=== PATIENT | female | born 1945 | race Caucasian/White ===

== ENCOUNTER → 2019-10-24 | Outpatient (CLI) | payer MEDICARE, OTHER | LOC: CARD 08:52 | PROVIDERS: ATTEND Physician Assistant | DX: I34.0 Nonrheumatic mitral (valve) insufficiency (principal); I65.29 Occlusion and stenosis of unspecified carotid artery; I10 Essential (primary) hypertension; E78.2 Mixed hyperlipidemia; R55 Syncope and collapse | CPT/HCPCS: 93306 ==

== ENCOUNTER → 2022-01-06 | Outpatient (CLI) | payer MEDICARE, OTHER ==
[~2022-01-06] MED LIST: CATHETER FLUSH 10 ML SYR IVP PRN
[2022-01-06 08:51] VITALS: BP 158/95
--- NOTE | 2022-01-06 13:24 | Cardiology Stress Test Report ---
Stress Test Report Date of Procedure/Referring: Date of Procedure: Jan 06, 2022 PCP Neli Delgadillo MD Admitting Physician Admitting Physician: Attending Physician: Rupa Zuniga Indications: HTN Baseline Heart Rate: 74 Baseline Blood Pressure: Blood Pressure Systolic: 158 Blood Pressure Diastolic: 95 Vital Signs Date Time Temp Pulse Resp B/P (MAP) Pulse Ox O2 Delivery O2 Flow Rate FiO2 01/06/22 08:51 74 158/95 (116) Baseline Vital Signs Vital Signs Date Time Temp Pulse Resp B/P (MAP) Pulse Ox O2 Delivery O2 Flow Rate FiO2 01/06/22 08:51 74 158/95 (116) Baseline EKG: Baseline EKG: NSR Summary: After explaining the procedure and details to the patient, she signed the consent and was brought to the stress nuclear laboratory. Patient exercised on standard [facility] protocol, EKG, heart rate and blood pressure were monitored continuously, resting and stress doses of radio tracer were injected, imaging was acquired and reviewed in the short axis, horizontal long axis and vertical long axis views Patient was able to exercise for a total of 3 minutes on [facility] protocol, METs 4.4 Maximum heart rate 155 Maximum blood pressure 216/102 Stress EKG, Minimal nondiagnostic changes Recovery EKG, Return to baseline TID: 1.07 SSS: 0 SDS: 0 EF: 74 Conclusion: 1. Fair exercise tolerance for a total of 3 minutes on standard [facility] protocol, 4.4 METS achieving over 100% of maximal expected heart rate 2. Appropriate heart rate response to exercise with severe hypertensive response to exercise with peak blood pressure 216/102 return to baseline during recovery 3. Nondiagnostic EKG changes with exercise return to baseline during recovery 4. No significant ischemia or infarction noted on SPECT images 5. Normal left ventricular size with ejection fraction 74% JAMES GUEVARA MD Jan 06, 2022 13:24
== END ==
LOC: CARD 07:45
PROVIDERS: ATTEND Physician Assistant
DX: I10 Essential (primary) hypertension (principal)
CPT/HCPCS: 78452; 93017; A9502

== ENCOUNTER → 2022-12-21 | Outpatient (CLI) | payer MEDICARE, OTHER | LOC: CARD 07:56 | PROVIDERS: ATTEND Internal Medicine Cardiovascular Disease | DX: I11.9 Hypertensive heart disease without heart failure (principal); I35.1 Nonrheumatic aortic (valve) insufficiency | CPT/HCPCS: 93306 ==